=== PATIENT | male | born 1945 | race Caucasian/White ===

== ENCOUNTER 2018-05-17 08:36 | Day surgery (SDC) | payer MEDICARE, BC ==
[2018-05-17] VITALS (12 sets, daily range): BP systolic 120–140; BP diastolic 67–82
[~2018-05-17] VITALS: Ht 190.5 cm; Wt 102.3 kg
[~2018-05-17 08:36] MED LIST: IBUP-24 PO; MAGN1TAB PO; METO50TA7 PO; MOEX1TAB6 PO; MULT-1085 PO; NAPR220C15 PO; VITC500T PO; potassium PO
[2018-05-17] MEDS ORDERED: LIDOcaine 1% 30ml preserv. free vial SQ STA (08:43)
== END 2018-05-17 10:20 | disposition home or self-care (01) ==
LOC: SSTAY O 08:36
PROVIDERS: ATTEND Radiology Diagnostic Radiology
DX: J90 Pleural effusion, not elsewhere classified (principal); I25.10 Atherosclerotic heart disease of native coronary artery without angina pectoris; I10 Essential (primary) hypertension; M41.84 Other forms of scoliosis, thoracic region; I49.8 Other specified cardiac arrhythmias; Z90.49 Acquired absence of other specified parts of digestive tract; Z87.891 Personal history of nicotine dependence; Z79.1 Long term (current) use of non-steroidal anti-inflammatories (NSAID); Z79.899 Other long term (current) drug therapy; Z98.890 Other specified postprocedural states; Z82.49 Family history of ischemic heart disease and other diseases of the circulatory system; Z83.3 Family history of diabetes mellitus; Z81.8 Family history of other mental and behavioral disorders
CPT/HCPCS: 32555; 71045; 83615; 84157; J3490

== ENCOUNTER 2018-07-31 06:32 | Day surgery (SDC) | payer MEDICARE, BC ==
[2018-07-31] VITALS (13 sets, daily range): BP systolic 116–136; BP diastolic 54–89
[~2018-07-31] VITALS: Ht 185.4 cm; Wt 100.0 kg
[~2018-07-31 06:32] MED LIST changes: +LOSA1TAB15 PO; +METO-539 PO; -METO50TA7 PO; -MOEX1TAB6 PO
[2018-07-31] MEDS ORDERED: LIDOcaine 1% 30ml preserv. free vial SQ STA (09:39)
[2018-07-31 11:06] LABS: BF WBC COUNT 370 /CU MM (0-1000); BFAPPEAR HAZY; BFCOLOR YELLOW; BFVOLUME 430 ML; LYMPHOCYTES,BODY FLUID 44 %; MONOCYTES,BODY FLUID 10 %; NEUTROPHILS,BODY FLUID 46 %
[2018-07-31 11:07] LABS: BF RBC COUNT 2 /CU MM
== END 2018-07-31 10:00 | disposition home or self-care (01) ==
LOC: SSTAY O 06:32
PROVIDERS: ATTEND Internal Medicine Pulmonary Disease
DX: J90 Pleural effusion, not elsewhere classified (principal); J44.9 Chronic obstructive pulmonary disease, unspecified; G47.33 Obstructive sleep apnea (adult) (pediatric); I10 Essential (primary) hypertension; I49.8 Other specified cardiac arrhythmias; Z90.49 Acquired absence of other specified parts of digestive tract; Z87.39 Personal history of other diseases of the musculoskeletal system and connective tissue; Z87.01 Personal history of pneumonia (recurrent); Z87.891 Personal history of nicotine dependence; Z79.1 Long term (current) use of non-steroidal anti-inflammatories (NSAID); Z79.899 Other long term (current) drug therapy; Z98.890 Other specified postprocedural states; Z82.49 Family history of ischemic heart disease and other diseases of the circulatory system; Z81.8 Family history of other mental and behavioral disorders; Z83.3 Family history of diabetes mellitus
CPT/HCPCS: 32554; 71045; 84157; 87070; 89051

== ENCOUNTER 2018-10-07 05:26 | Inpatient (IN) | payer MEDICARE, BC ==
[2018-10-04 13:57] LABS: BASOPHILS # (AUTO) 0.1 X10'3 (0-0.2); BASOPHILS % (AUTO) 0.7 % (0-1); EOSINOPHILS # (AUTO) 0.3 X10'3 (0-0.9); EOSINOPHILS % (AUTO) 3.2 % (0-6); LYMPHOCYTES # (AUTO) 1.2 X10'3 (1.1-4.8); LYMPHOCYTES % (AUTO) 12.2 % (21-51); MEAN CORPUSCULAR HEMOGLOBIN 25.4 PG (27.0-31.0); MEAN CORPUSCULAR HGB CONC 33.6 g/dL (33.0-36.5); MEAN CORPUSCULAR VOLUME 75.7 FL (78-98); MEAN PLATELET VOLUME 8.3 FL (7.4-10.4); MONOCYTES % (AUTO) 9.7 % (2-12); NEUTROPHILS # (AUTO) 7.6 X10'3 (1.8-7.7); NEUTROPHILS % (AUTO) 74.2 % (42-75); PRE OP HEMATOCRIT 44.1 % (42.0-52.0); PRE OP HEMOGLOBIN 14.8 g/dL (14.0-17.9); PRE OP PLATELET COUNT 371 X10'3 (140-440); RED BLOOD COUNT 5.82 X10'6 (4.70-6.10)
[2018-10-04 14:02] LABS: CLARITY,URINE CLEAR (Clear); COLOR,URINE YELLOW (Yellow); GLUCOSE, URINE NEGATIVE (Neg); KETONES,URINE NEGATIVE (Neg); LEUKOCYTE ESTERASE ,URINE NEGATIVE (Neg); NITRITES, URINE NEGATIVE (Neg); OCCULT BLOOD,URINE NEGATIVE (Neg); PROTEIN,URINE NEGATIVE (Neg); UROBILINOGEN,URINE 0.2 E.U/dL (0.2-1.0)
[2018-10-04 14:07] LABS: UA COLLECTION TYPE CLN CATCH MIDSTREAM
[2018-10-04 14:09] LABS: HEMOGLOBIN A1C 5.8 % (4.5-6.2)
[2018-10-04 14:12] LABS: ALBUMIN 3.8 G/DL (3.4-5.0); ALBUMIN/GLOBULIN RATIO 0.8 (1.1-1.5); ALKALINE PHOSPHATASE 104 IU/L (46-116); BLOOD UREA NITROGEN 13 MG/DL (7-18); BUN/CREATININE RATIO 13.3 (5.4-32.0); CHLORIDE 97 MMOL/L (99-107); CREATININE 0.98 MG/DL (0.60-1.10); PRE OP ALT 20 U/L (30-65); PRE OP ANION GAP 8 (8-16); PRE OP AST 17 U/L (10-37); PRE OP BILIRUB, TOTAL 0.6 MG/DL (0.0-1.0); PRE OP GLUCOSE 88 MG/DL (70-104); PRE OP POTASSIUM 3.5 MMOL/L (3.4-5.1); PRE OP SODIUM 134 MMOL/L (135-145); TOTAL PROTEIN 8.6 G/DL (6.4-8.2); eGFR 75 ML/MIN
[2018-10-04 14:21] LABS: PRE OP INR 1.1 INR; PRE OP PROTIME 11.5 SECONDS (9.0-12.0)
[2018-10-07] VITALS (18 sets, daily range): BP systolic 113–154; BP diastolic 67–79
[~2018-10-07] VITALS: Ht 185.4 cm; Wt 96.4 kg
[~2018-10-07 05:26] MED LIST changes: -NAPR220C15 PO; -potassium PO; +ringers solution, lacted 1,000 ML IV SCH
[2018-10-07] MEDS ORDERED: famotidine 20mg tablet PO ONE (05:30)
[2018-10-07] MEDS ORDERED: ceFAZolin 2gm in dextrose, iso 100 ML IV ONE (05:30)
[2018-10-07] MEDS ORDERED: mupirocin 2% nasal ointment 1gm UD NS ONE (05:30)
[2018-10-07] MEDS ORDERED: LIDOcaine 1% (10mg/ml) 2ml vial ONE (05:43)
[2018-10-07] MEDS ORDERED: BUPIVAcaine/PF 2.5mg/ml (0.25%) 10ml vial ONE (06:38)
[2018-10-07] MEDS ORDERED: ondansetron/PF 4mg/2ml inj ONE (07:16)
[2018-10-07] MEDS ORDERED: MIDAZolam 5mg/5ml vial ONE (07:16)
[2018-10-07] MEDS ORDERED: fentaNYL /PF 50mcg/ml 5ml ampule ONE (07:16)
[2018-10-07] MEDS ORDERED: dexamethasone sod phosphate 10mg/ml inj ONE (07:16)
[2018-10-07] MEDS ORDERED: sevoflurane 250ml liquid IH ONE (07:16)
[2018-10-07] MEDS ORDERED: propofol inj 20 ML IV ONE (08:01)
[2018-10-07] MEDS ORDERED: [UNRECOGNIZED DRUG - OTHER] IPL ONE (08:10)
[2018-10-07] MEDS ORDERED: TALC IPL ONE (08:10)
[2018-10-07] MEDS ORDERED: sterile Talc 2 GM powder vial IPL ONE (08:30)
[2018-10-07] MEDS ORDERED: ringers solution, lacted 1,000 ML IV SCH (08:33)
[2018-10-07] MEDS ORDERED: rocuronium 10mg/ml inj IV ONE (08:34)
[2018-10-07] MEDS ORDERED: ePHEDrine 50MG/ML INJ. ONE (08:34)
[2018-10-07] MEDS ORDERED: ondansetron/PF 4mg/2ml inj IV PRN ×2 (08:35→08:45)
[2018-10-07] MEDS ORDERED: meperidine/PF 25mg/ml syringe IV PRN ×3 (08:35)
[2018-10-07] MEDS ORDERED: acetaminophen 1,000mg/100ml IV 100 ML IV PRN (08:35)
[2018-10-07] MEDS ORDERED: morphine 4 MG/ML inj SYRINge IV PRN ×4 (08:35→08:45)
[2018-10-07] MEDS ORDERED: neostigmine methylsulfate 1 MG/ML 10ml vial ONE (08:37)
[2018-10-07] MEDS ORDERED: glycopyrrolate 0.2mg/ml inj ONE (08:38)
[2018-10-07] MEDS ORDERED: metoclopramide 5 mg/ml inj IV PRN (08:45)
[2018-10-07] MEDS ORDERED: naloxone 0.4 mg/ml inj IV PRN (08:45)
[2018-10-07] MEDS ORDERED: HYDROcodone/acetaminophen 10/325mg tab PO PRN ×2 (08:45)
[2018-10-07] MEDS ORDERED: magnesium hydroxide 30ml (MOM) UD suspension PO PRN (08:45)
[2018-10-07] MEDS ORDERED: albuterol 2.5 MG/3 ML nebule NEB PRN (08:45)
--- NOTE | 2018-10-07 09:00 | NUR ---
Received from OR via BED , accompanied by Anesthesiologist DR SUAREZ and report given by Anesthesiolgist. PATIENT WAKING UP, DENIES PAIN, V/S WNL, NEUROVASCULAR CHECKS INTACT. 18G LUE, ART LINE RUE, CENTRAL LINE LEFT NECK, CHEST TUBE TO LEFT SIDE CDI WITH SMALL AIR LEAK DR GIBSON AWARE OF , NO OUTPUT IN DRAIN BUT SMALL AMOUNT IN TUBE. F/C DRAINING CLEAR YELLOW URINE. SCD ON.
--- NOTE | 2018-10-07 10:00 | NUR ---
PATIENT A&OX4, DENIES PAIN, V/S WNL, NEUROVASCULAR CHECKS INTACT. 18G LUE, ART LINE RUE D/C, CENTRAL LINE RIGHT NECK, CHEST TUBE TO LEFT SIDE CDI WITH SMALL AIR LEAK DR GIBSON AWARE OF , NO OUTPUT IN DRAIN BUT SMALL AMOUNT IN TUBE. F/C DRAINING CLEAR YELLOW URINE. SCD ON.TAKEN TO 316 WITH ALL BELONGINGS AND HOOKED UP TO MONITORS IN ROOM AND REPORT GIVEN TO LALITA RN WHO HAS TAKEN OVER PATIENT CARE.
--- NOTE | 2018-10-07 10:05 | NUR ---
Pt arrived to room from recovery. Pt oriented to room. Pt family at bedside. Pt call light in reach.
--- NOTE | 2018-10-07 10:47 | NUR ---
patient education done about how and when to use incentive spirometer. Patient verbalized understanding of use and importance.
[2018-10-07 10:49] LABS: BASOPHILS # (AUTO) 0.1 X10'3 (0-0.2); BASOPHILS % (AUTO) 0.6 % (0-1); EOSINOPHILS # (AUTO) 0.2 X10'3 (0-0.9); EOSINOPHILS % (AUTO) 2.1 % (0-6); HEMATOCRIT 36.6 % (42.0-52.0); HEMOGLOBIN 12.1 g/dl (14.0-17.9); LYMPHOCYTES # (AUTO) 1.3 X10'3 (1.1-4.8); LYMPHOCYTES % (AUTO) 14.3 % (21-51); MEAN CORPUSCULAR HEMOGLOBIN 24.9 PG (27.0-31.0); MEAN CORPUSCULAR VOLUME 75.6 FL (78-98); MEAN PLATELET VOLUME 7.8 FL (7.4-10.4); MONOCYTES # (AUTO) 0.6 X10'3 (0-0.9); MONOCYTES % (AUTO) 6.8 % (2-12); NEUTROPHILS # (AUTO) 6.9 X10'3 (1.8-7.7); NEUTROPHILS % (AUTO) 76.2 % (42-75); PLATELET COUNT 263 X10'3 (140-440); RED BLOOD COUNT 4.83 X10'6 (4.70-6.10); RED CELL DISTRIBUTION WIDTH 16.7 % (11.5-14.5)
[2018-10-07 10:57] LABS: ALBUMIN 2.9 G/DL (3.4-5.0); ANION GAP 4 (8-16); BLOOD UREA NITROGEN 15 MG/DL (7-18); BUN/CREATININE RATIO 15.5 (5.4-32.0); CHLORIDE 101 MMOL/L (99-107); CREATININE 0.97 MG/DL (0.60-1.10); GLUCOSE 107 MG/DL (70-104); POTASSIUM 3.9 MMOL/L (3.5-5.1); SODIUM 135 MMOL/L (135-145); TOTAL CARBON DIOXIDE 30.4 MMOL/L (24-32); eGFR 75 ML/MIN
--- NOTE | 2018-10-07 12:14 | NUR ---
catheter in place, urine present
[2018-10-07] MEDS: acetaminophen 325mg tablet PO PRN (14:58)
[2018-10-07] MEDS: ceFAZolin inj. 1,000 MG in dextrose 5%-water 50ml 50 ML IV SCH (16:11)
--- NOTE | 2018-10-07 17:13 | NUR ---
Student documentation: I have reviewed and agree with all interventions, assessments performed and documented by Layne RNS. Student Medication Administration: For this medication-pass time frame, all medication were reviewed, dispensed, administered and documented per hospital policy by Layne RNS.
[2018-10-07] MEDS: docusate sod 100mg capsule PO SCH (20:13)
[2018-10-08] MEDS: ceFAZolin inj. 1,000 MG in dextrose 5%-water 50ml 50 ML IV SCH (00:06)
[2018-10-08 03:00] VITALS: BP 141/74
[2018-10-08 04:47] LABS: BASOPHILS # (AUTO) 0.1 X10'3 (0-0.2); BASOPHILS % (AUTO) 0.5 % (0-1); EOSINOPHILS # (AUTO) 0.1 X10'3 (0-0.9); EOSINOPHILS % (AUTO) 1.2 % (0-6); HEMOGLOBIN 12.5 g/dl (14.0-17.9); LYMPHOCYTES # (AUTO) 1.4 X10'3 (1.1-4.8); LYMPHOCYTES % (AUTO) 11.1 % (21-51); MEAN CORPUSCULAR HEMOGLOBIN 24.7 PG (27.0-31.0); MEAN CORPUSCULAR HGB CONC 32.9 g/dL (33.0-36.5); MEAN CORPUSCULAR VOLUME 75.1 FL (78-98); MEAN PLATELET VOLUME 8.4 FL (7.4-10.4); MONOCYTES # (AUTO) 1.3 X10'3 (0-0.9); MONOCYTES % (AUTO) 10.6 % (2-12); NEUTROPHILS # (AUTO) 9.7 X10'3 (1.8-7.7); NEUTROPHILS % (AUTO) 76.6 % (42-75); PLATELET COUNT 270 X10'3 (140-440); RED BLOOD COUNT 5.06 X10'6 (4.70-6.10); RED CELL DISTRIBUTION WIDTH 16.6 % (11.5-14.5); WHITE BLOOD COUNT 12.6 X10'3 (4.5-11.0)
[2018-10-08 04:51] LABS: ALBUMIN 2.6 G/DL (3.4-5.0); ANION GAP 6 (8-16); BLOOD UREA NITROGEN 11 MG/DL (7-18); BUN/CREATININE RATIO 13.3 (5.4-32.0); CALCIUM 8.6 MG/DL (8.5-10.1); CHLORIDE 97 MMOL/L (99-107); CREATININE 0.83 MG/DL (0.60-1.10); GLUCOSE 112 MG/DL (70-104); MAGNESIUM 1.5 MG/DL (1.5-2.4); POTASSIUM 3.4 MMOL/L (3.5-5.1); SODIUM 130 MMOL/L (135-145); TOTAL CARBON DIOXIDE 26.7 MMOL/L (24-32); eGFR 90 ML/MIN
--- NOTE | 2018-10-08 06:37 | NUR ---
Patient in room MED 316. I have received report from Tess and had the opportunity to ask questions and assume patient care.
[2018-10-08 07:00] VITALS: BP 138/81
[2018-10-08] MEDS: docusate sod 100mg capsule PO SCH ×2 (07:27→20:34)
[2018-10-08] MEDS: multivitamins, therapeutics tablet PO SCH (07:27)
[2018-10-08] MEDS: enoxaparin 40mg/0.4ml syringe SUBCUT SCH (07:28)
[2018-10-08] MEDS: HYDROchlorothiazide 25mg tablet PO SCH (07:28)
[2018-10-08] MEDS: metoprolol succinate 25mg (24-HOUR) SR. Tablet PO SCH (07:28)
[2018-10-08] MEDS: ascorbic acid 500mg tablet PO SCH (07:28)
[2018-10-08] MEDS: losartan 50mg tablet PO SCH (07:28)
[2018-10-08] MEDS ORDERED: mag hydrox/Alum hydrox/simeth 30ml oral suspension PO PRN (08:00)
--- NOTE | 2018-10-08 09:40 | NUR ---
Right CVL dc'd.
[2018-10-08] MEDS ORDERED: magnesium 2GM in 50ml NS 50 ML IV PRN (09:45)
[2018-10-08] MEDS ORDERED: potassium Cl 20 mEq SR tablet PO PRN (09:45)
[2018-10-08] MEDS ORDERED: magnesium 4gm in 100ml NS 100 ML IV PRN (09:45)
[2018-10-08] MEDS ORDERED: magnesium Cl slow-release 64mg tablet PO PRN (09:45)
[2018-10-08] MEDS ORDERED: potassium Cl 40MEQ/NS 500ml 500 ML IV PRN ×2 (09:45)
[2018-10-08] MEDS: K and/or MAG REPLACEMENT MC SCH (09:50)
[2018-10-08] MEDS: potassium Cl 20 mEq SR tablet PO PRN (10:12)
--- NOTE | 2018-10-08 10:29 | NUR ---
Notified Alexey Martins of K 3.4 and mag 1.5. See orders.
[2018-10-08 11:30] VITALS: BP 123/67
[2018-10-08 15:30] VITALS: BP 123/64
--- NOTE | 2018-10-08 18:11 | NUR ---
Problems reprioritized. Patient report given, questions answered & plan of care reviewed with derrick.
--- NOTE | 2018-10-08 18:20 | NUR ---
Patient in room MED 316. I have received report from Rocío MCGINNIS and had the opportunity to ask questions and assume patient care. at bedside, pt sitting up in chair eating dinner, no c/o pain/distress at this time. will continue to monitor.
[2018-10-08 19:00] VITALS: BP 145/76
[2018-10-08] MEDS: magnesium Cl slow-release 64mg tablet PO SCH (20:33)
[2018-10-08] MEDS: acetaminophen 325mg tablet PO PRN (20:34)
[2018-10-08] MEDS: potassium Cl 20 mEq SR tablet PO SCH (20:34)
[2018-10-08 23:00] VITALS: BP 151/74
[2018-10-09 03:00] VITALS: BP 145/88
[2018-10-09 06:00] VITALS: BP 137/73
--- NOTE | 2018-10-09 06:27 | NUR ---
Problems reprioritized. Patient report given, questions answered & plan of care reviewed with Griselda MCGINNIS.
--- NOTE | 2018-10-09 06:46 | NUR ---
Patient in room MED 316. I have received report from Tess MCGINNIS and had the opportunity to ask questions and assume patient care.
[2018-10-09 06:50] LABS: BASOPHILS % (AUTO) 0.2 % (0-1); EOSINOPHILS # (AUTO) 0.5 X10'3 (0-0.9); EOSINOPHILS % (AUTO) 4.7 % (0-6); HEMATOCRIT 37.4 % (42.0-52.0); HEMOGLOBIN 12.7 g/dl (14.0-17.9); LYMPHOCYTES # (AUTO) 1.2 X10'3 (1.1-4.8); LYMPHOCYTES % (AUTO) 11.7 % (21-51); MEAN CORPUSCULAR HEMOGLOBIN 25.3 PG (27.0-31.0); MEAN CORPUSCULAR HGB CONC 33.9 g/dL (33.0-36.5); MEAN CORPUSCULAR VOLUME 74.8 FL (78-98); MEAN PLATELET VOLUME 8.3 FL (7.4-10.4); MONOCYTES # (AUTO) 1.4 X10'3 (0-0.9); MONOCYTES % (AUTO) 13.5 % (2-12); NEUTROPHILS # (AUTO) 7.4 X10'3 (1.8-7.7); NEUTROPHILS % (AUTO) 69.9 % (42-75); PLATELET COUNT 268 X10'3 (140-440); RED BLOOD COUNT 5.01 X10'6 (4.70-6.10); RED CELL DISTRIBUTION WIDTH 16.4 % (11.5-14.5); WHITE BLOOD COUNT 10.6 X10'3 (4.5-11.0)
[2018-10-09 06:56] LABS: ALBUMIN 2.6 G/DL (3.4-5.0); ANION GAP 9 (8-16); BLOOD UREA NITROGEN 10 MG/DL (7-18); BUN/CREATININE RATIO 11.9 (5.4-32.0); CALCIUM 9.1 MG/DL (8.5-10.1); CHLORIDE 96 MMOL/L (99-107); CREATININE 0.84 MG/DL (0.60-1.10); GLUCOSE 95 MG/DL (70-104); MAGNESIUM 1.7 MG/DL (1.5-2.4); POTASSIUM 3.3 MMOL/L (3.5-5.1); SODIUM 131 MMOL/L (135-145); TOTAL CARBON DIOXIDE 26.4 MMOL/L (24-32); eGFR 89 ML/MIN
[2018-10-09] MEDS: HYDROchlorothiazide 25mg tablet PO SCH (07:56)
[2018-10-09] MEDS: multivitamins, therapeutics tablet PO SCH (07:56)
[2018-10-09] MEDS: docusate sod 100mg capsule PO SCH ×2 (07:57→19:58)
[2018-10-09] MEDS: potassium Cl 20 mEq SR tablet PO SCH ×2 (07:57→19:59)
[2018-10-09] MEDS: metoprolol succinate 25mg (24-HOUR) SR. Tablet PO SCH (07:57)
[2018-10-09] MEDS: losartan 50mg tablet PO SCH (07:57)
[2018-10-09] MEDS: ascorbic acid 500mg tablet PO SCH (07:58)
[2018-10-09] MEDS: enoxaparin 40mg/0.4ml syringe SUBCUT SCH (07:58)
[2018-10-09] MEDS: magnesium Cl slow-release 64mg tablet PO SCH ×2 (07:58→19:59)
[2018-10-09] MEDS: K and/or MAG REPLACEMENT MC SCH (08:00)
[2018-10-09] MEDS: potassium Cl 20 mEq SR tablet PO PRN ×2 (09:18→14:26)
[2018-10-09 11:00] VITALS: BP 131/76
[2018-10-09] MEDS: acetaminophen 325mg tablet PO PRN (12:51)
[2018-10-09 15:00] VITALS: BP 142/67
[2018-10-09] MEDS ORDERED: diphenhydrAMINE 25mg capsule PO PRN (15:30)
[2018-10-09] MEDS ORDERED: zolpidem 5mg tablet PO PRN (15:30)
--- NOTE | 2018-10-09 17:42 | NUR ---
Problems reprioritized. Patient report given, questions answered & plan of care reviewed with Indigo MCGINNIS.
--- NOTE | 2018-10-09 17:49 | NUR ---
Patient in room MED 316. I have received report from RAHEL Villalobos and had the opportunity to ask questions and assume patient care.
--- NOTE | 2018-10-09 17:49 | NUR ---
Chest tube has had no output from previous noc shifts assessment. Patient is in bed with family at bedside. Room air. Reports no SOB. Is requesting a Tylenol after dinner and a Benadryl at bedtime. Will communicate this with NOC RN
[2018-10-09 18:00] VITALS: BP 137/42
--- NOTE | 2018-10-09 18:15 | NUR ---
Patient in room MED 316. I have received report from [place] and had the opportunity to ask questions and assume patient care.
[2018-10-09 23:00] VITALS: BP 132/72
[2018-10-10 03:00] VITALS: BP 136/79
[2018-10-10 06:00] VITALS: BP 151/80
[2018-10-10 06:35] LABS: BASOPHILS % (AUTO) 0.4 % (0-1); EOSINOPHILS # (AUTO) 0.8 X10'3 (0-0.9); EOSINOPHILS % (AUTO) 8.5 % (0-6); HEMATOCRIT 37.7 % (42.0-52.0); HEMOGLOBIN 12.7 g/dl (14.0-17.9); LYMPHOCYTES # (AUTO) 1.2 X10'3 (1.1-4.8); LYMPHOCYTES % (AUTO) 12.7 % (21-51); MEAN CORPUSCULAR HEMOGLOBIN 25.4 PG (27.0-31.0); MEAN CORPUSCULAR HGB CONC 33.7 g/dL (33.0-36.5); MEAN CORPUSCULAR VOLUME 75.4 FL (78-98); MEAN PLATELET VOLUME 8.3 FL (7.4-10.4); MONOCYTES # (AUTO) 0.9 X10'3 (0-0.9); MONOCYTES % (AUTO) 9.4 % (2-12); NEUTROPHILS # (AUTO) 6.7 X10'3 (1.8-7.7); PLATELET COUNT 293 X10'3 (140-440); RED BLOOD COUNT 4.99 X10'6 (4.70-6.10); RED CELL DISTRIBUTION WIDTH 16.4 % (11.5-14.5); WHITE BLOOD COUNT 9.6 X10'3 (4.5-11.0)
[2018-10-10 06:45] LABS: ALBUMIN 2.5 G/DL (3.4-5.0); ANION GAP 9 (8-16); BLOOD UREA NITROGEN 12 MG/DL (7-18); BUN/CREATININE RATIO 14.1 (5.4-32.0); CALCIUM 9.3 MG/DL (8.5-10.1); CHLORIDE 97 MMOL/L (99-107); CREATININE 0.85 MG/DL (0.60-1.10); GLUCOSE 86 MG/DL (70-104); MAGNESIUM 1.8 MG/DL (1.5-2.4); POTASSIUM 3.8 MMOL/L (3.5-5.1); SODIUM 132 MMOL/L (135-145); TOTAL CARBON DIOXIDE 26.3 MMOL/L (24-32); eGFR 88 ML/MIN
[2018-10-10] MEDS: enoxaparin 40mg/0.4ml syringe SUBCUT SCH (08:00)
[2018-10-10] MEDS: K and/or MAG REPLACEMENT MC SCH (08:00)
[2018-10-10] MEDS: losartan 50mg tablet PO SCH (09:37)
[2018-10-10] MEDS: docusate sod 100mg capsule PO SCH (09:37)
[2018-10-10] MEDS: HYDROchlorothiazide 25mg tablet PO SCH (09:37)
[2018-10-10] MEDS: potassium Cl 20 mEq SR tablet PO SCH (09:38)
[2018-10-10] MEDS: ascorbic acid 500mg tablet PO SCH (09:38)
[2018-10-10] MEDS: magnesium Cl slow-release 64mg tablet PO SCH (09:38)
[2018-10-10] MEDS: multivitamins, therapeutics tablet PO SCH (09:38)
[2018-10-10] MEDS: metoprolol succinate 25mg (24-HOUR) SR. Tablet PO SCH (09:38)
[2018-10-10 11:00] VITALS: BP 137/76
--- NOTE | 2018-10-10 11:50 | NUR ---
discharge education provided to pt and spouse; all questions answered. pt removed from cardiac monitoring, IV removed; cannula intact. pt wheeled with all belongings downstairs to private vehicle.
== END 2018-10-10 11:50 | disposition home health service (06) | DRG 164 ==
LOC: PAS IN 05:26 → EDSTATUS 07:30 → MED 3N 10:23
PROVIDERS: ADMIT Thoracic Surgery (Cardiothoracic Vascular Surgery); ATTEND Thoracic Surgery (Cardiothoracic Vascular Surgery)
PROC: 0B5P4ZZ Destruction of Left Pleura, Percutaneous Endoscopic Approach (ICD-10-PCS; 2018-10-07)
PROC: 0BJ08ZZ Inspection of Tracheobronchial Tree, Via Natural or Artificial Opening Endoscopic (ICD-10-PCS; 2018-10-07)
PROC: 3E0L4GC Introduction of Other Therapeutic Substance into Pleural Cavity, Percutaneous Endoscopic Approach (ICD-10-PCS; 2018-10-07)
PROC: 0W9B40Z Drainage of Left Pleural Cavity with Drainage Device, Percutaneous Endoscopic Approach (ICD-10-PCS; 2018-10-07)
PROC: 0BBP4ZX Excision of Left Pleura, Percutaneous Endoscopic Approach, Diagnostic (ICD-10-PCS; principal; 2018-10-07 07:16)
DX: J90 Pleural effusion, not elsewhere classified (principal); E44.0 Moderate protein-calorie malnutrition; E87.1 Hypo-osmolality and hyponatremia; M06.9 Rheumatoid arthritis, unspecified; G47.30 Sleep apnea, unspecified; J60 Coalworker's pneumoconiosis; R68.81 Early satiety; R63.4 Abnormal weight loss; I10 Essential (primary) hypertension; Z98.1 Arthrodesis status; Z90.49 Acquired absence of other specified parts of digestive tract; Z79.899 Other long term (current) drug therapy; Z87.891 Personal history of nicotine dependence; Z82.49 Family history of ischemic heart disease and other diseases of the circulatory system; Z68.28 Body mass index [BMI] 28.0-28.9, adult
CPT/HCPCS: 36415; 71045; 71046; 71250; 80048; 80053; 81003; 82948; 83036; 83735; 85025; 85610; 85730; 86885; 86900; 86901; 87070; 87075; 87102; 88108; 88305; 93005; 97110; 97116; 97161; A6449; A7000; A7048; C1758; G0378; J0690; J1100; J1650; J2250; J2405; J2704; J2710; J3010; J3490; J7060; J7120; Q0163

== ENCOUNTER 2018-10-17 12:07 | Outpatient (CLI) | payer MEDICARE, BC ==
[~2018-10-17 12:07] MED LIST changes: -ringers solution, lacted 1,000 ML IV SCH
== END 2018-10-17 23:59 | disposition home or self-care (01) ==
LOC: RAD 12:07
PROVIDERS: ATTEND Thoracic Surgery (Cardiothoracic Vascular Surgery)
DX: J90 Pleural effusion, not elsewhere classified (principal); I10 Essential (primary) hypertension
CPT/HCPCS: 71046

== ENCOUNTER 2019-04-22 16:50 | Observation (INO) | payer BC, MEDICARE, OTHER ==
[~2019-04-22] VITALS: Ht 185.4 cm; Wt 96.0 kg
[2019-04-22 17:21] LABS: BASOPHILS % (AUTO) 0.6 % (0-1); EOSINOPHILS # (AUTO) 0.2 X10'3 (0-0.9); EOSINOPHILS % (AUTO) 2.9 % (0-6); HEMATOCRIT 38.1 % (42.0-52.0); HEMOGLOBIN 12.8 g/dl (14.0-17.9); LYMPHOCYTES % (AUTO) 24.9 % (21-51); MEAN CORPUSCULAR HEMOGLOBIN 26.1 PG (27.0-31.0); MEAN CORPUSCULAR HGB CONC 33.6 g/dL (33.0-36.5); MEAN CORPUSCULAR VOLUME 77.7 FL (78-98); MEAN PLATELET VOLUME 8.3 FL (7.4-10.4); MONOCYTES # (AUTO) 0.8 X10'3 (0-0.9); MONOCYTES % (AUTO) 9.7 % (2-12); NEUTROPHILS % (AUTO) 61.9 % (42-75); PLATELET COUNT 327 X10'3 (140-440); RED CELL DISTRIBUTION WIDTH 15.8 % (11.5-14.5); WHITE BLOOD COUNT 8.2 X10'3 (4.5-11.0)
[2019-04-22 17:30] LABS: PARTIAL THROMBOPLASTIN TIME 28 SECONDS (22-32)
[2019-04-22 17:33] LABS: ALANINE AMINOTRANSFERASE 15 U/L (12-78); ALBUMIN 3.2 G/DL (3.4-5.0); ALBUMIN/GLOBULIN RATIO 0.7 (1.1-1.5); ALKALINE PHOSPHATASE 94 IU/L (46-116); ANION GAP 8 (8-16); ASPARTATE AMINO TRANSFERASE 18 U/L (10-37); BILIRUBIN,TOTAL 0.3 MG/DL (0.1-1.0); BLOOD UREA NITROGEN 13 MG/DL (7-18); BUN/CREATININE RATIO 12.9 (5.4-32.0); CALCIUM 9.4 MG/DL (8.5-10.1); CHLORIDE 99 MMOL/L (99-107); CREATININE 1.01 MG/DL (0.60-1.10); GLUCOSE 88 MG/DL (70-104); POTASSIUM 3.8 MMOL/L (3.5-5.1); SODIUM 135 MMOL/L (135-145); TOTAL CARBON DIOXIDE 27.9 MMOL/L (24-32); eGFR 72 ML/MIN
[2019-04-22] MEDS ORDERED: iohexol 350MG/ML 100ml bottle IV ONE (17:54)
[2019-04-22] MEDS ORDERED: magnesium Cl slow-release 64mg tablet PO PRN (19:35)
[2019-04-22] MEDS ORDERED: ondansetron/PF 4mg/2ml inj IV PRN (19:35)
[2019-04-22] MEDS ORDERED: nitroGLYCERIN 0.4mg SUBLingual tab SL PRN ×2 (19:35→23:05)
[2019-04-22] MEDS ORDERED: morphine 2 MG/ML inj. syringe IV PRN ×2 (19:35)
[2019-04-22] MEDS ORDERED: magnesium hydroxide 30ml (MOM) UD suspension PO PRN (19:35)
[2019-04-22] MEDS ORDERED: HYDROcodone/acetaminophen 5mg/325mg tablet PO PRN (19:35)
[2019-04-22] MEDS ORDERED: magnesium 4gm in 100ml NS 100 ML IV PRN (19:35)
[2019-04-22] MEDS ORDERED: potassium CL 10mEq/100ml bag 100 ML IV PRN ×2 (19:35)
[2019-04-22] MEDS ORDERED: mag hydrox/Alum hydrox/simeth 30ml oral suspension PO PRN (19:35)
[2019-04-22] MEDS ORDERED: potassium Cl 20 mEq SR tablet PO PRN (19:35)
[2019-04-22] MEDS ORDERED: magnesium 2GM in 50ml NS 50 ML IV PRN (19:35)
[2019-04-22] MEDS ORDERED: acetaminophen 325mg tablet PO PRN ×2 (19:35)
[2019-04-22 20:10] LABS: HEMOGLOBIN A1C 5.5 % (4.5-6.2)
--- NOTE | 2019-04-22 20:36 | NUR ---
BREAKING PRIMARY RN, GAVE PT SANDWICH, MILK AND YOGURT, CYCLED BP, UPDATED VITALS, HE IS ON THE PHONE, WOFE PRESENT, STABLE
--- NOTE | 2019-04-22 20:42 | NUR ---
CALLED TO GIVE REPORT WAS TOLD THAT RAHEL FERRO IS IN THE MIDDLE OF MED PASS AND WILL CALL BACK IN A FEW MINS
[2019-04-22 22:00] VITALS: BP 126/67
[2019-04-22] MEDS ORDERED: aminophylline 250mg/10ml inj. IV PRN (23:05)
[2019-04-22] MEDS ORDERED: metoprolol tartrate 1mg/ml inj IV PRN (23:05)
[2019-04-22] MEDS ORDERED: regadenoson 0.4mg/5ml syringe IV PRN (23:05)
[2019-04-23] VITALS (16 sets, daily range): BP systolic 117–154; BP diastolic 66–91
[2019-04-23 05:50] LABS: BASOPHILS # (AUTO) 0.1 X10'3 (0-0.2); BASOPHILS % (AUTO) 0.7 % (0-1); EOSINOPHILS # (AUTO) 0.3 X10'3 (0-0.9); EOSINOPHILS % (AUTO) 3.5 % (0-6); HEMATOCRIT 37.1 % (42.0-52.0); HEMOGLOBIN 12.5 g/dl (14.0-17.9); LYMPHOCYTES # (AUTO) 1.8 X10'3 (1.1-4.8); LYMPHOCYTES % (AUTO) 24.1 % (21-51); MEAN CORPUSCULAR HEMOGLOBIN 25.8 PG (27.0-31.0); MEAN CORPUSCULAR HGB CONC 33.5 g/dL (33.0-36.5); MEAN CORPUSCULAR VOLUME 76.9 FL (78-98); MEAN PLATELET VOLUME 8.7 FL (7.4-10.4); MONOCYTES # (AUTO) 0.7 X10'3 (0-0.9); MONOCYTES % (AUTO) 9.7 % (2-12); NEUTROPHILS # (AUTO) 4.7 X10'3 (1.8-7.7); PLATELET COUNT 295 X10'3 (140-440); RED BLOOD COUNT 4.83 X10'6 (4.70-6.10); RED CELL DISTRIBUTION WIDTH 15.7 % (11.5-14.5); WHITE BLOOD COUNT 7.5 X10'3 (4.5-11.0)
[2019-04-23 06:05] LABS: ANION GAP 9 (8-16); BLOOD UREA NITROGEN 15 MG/DL (7-18); BUN/CREATININE RATIO 14.2 (5.4-32.0); CALCIUM 9.1 MG/DL (8.5-10.1); CHLORIDE 101 MMOL/L (99-107); CREATININE 1.06 MG/DL (0.60-1.10); GLUCOSE 79 MG/DL (70-104); POTASSIUM 3.4 MMOL/L (3.5-5.1); SODIUM 140 MMOL/L (135-145); TOTAL CARBON DIOXIDE 30.5 MMOL/L (24-32); eGFR 68 ML/MIN
--- NOTE | 2019-04-23 06:20 | NUR ---
Gave report to Andre. Answered all the questions.
[2019-04-23] MEDS ORDERED: enoxaparin 40mg/0.4ml syringe SQ SCH (08:00)
[2019-04-23] MEDS: K and/or MAG REPLACEMENT MC SCH (08:00)
[2019-04-23] MEDS ORDERED: losartan 50mg tablet PO SCH (08:00)
[2019-04-23] MEDS ORDERED: aspirin 325mg tablet, delayed-release (Ecotrin) PO SCH (08:00)
[2019-04-23] MEDS ORDERED: HYDROchlorothiazide 25mg tablet PO SCH (08:00)
[2019-04-23] MEDS: potassium Cl 20 mEq SR tablet PO PRN ×2 (09:25→14:40)
--- NOTE | 2019-04-23 17:51 | NUR ---
Discharge instructions reviewed with pt. Pt verbalized understanding. IV removed. Pt discharged to home with .
== END 2019-04-23 17:45 | disposition home or self-care (01) ==
LOC: ER 16:50 → MED 3N 19:53 → UNDOADMOB 20:07 → ED HOLD 20:07 → INTOOBSV 20:07 → EDBEDREQ 20:30 → MED 3N 21:42 → ED HOLD 21:42 → CMPBEDREQ 21:55
PROVIDERS: ADMIT Hospitalist; ATTEND Family Medicine
DX: R07.89 Other chest pain (principal); N40.0 Benign prostatic hyperplasia without lower urinary tract symptoms; M54.9 Dorsalgia, unspecified; G89.29 Other chronic pain; E11.9 Type 2 diabetes mellitus without complications; I77.819 Aortic ectasia, unspecified site; J43.9 Emphysema, unspecified; I10 Essential (primary) hypertension; I25.10 Atherosclerotic heart disease of native coronary artery without angina pectoris; Z82.49 Family history of ischemic heart disease and other diseases of the circulatory system; Z83.3 Family history of diabetes mellitus
CPT/HCPCS: 36415; 71045; 71275; 74175; 78452; 80048; 80053; 83036; 83735; 84484; 85025; 85610; 85730; 87081; 93005; 93017; 93306; 96372; 99284; A9500; G0378; J0280; J2785; Q9967; 99285; J1650

== ENCOUNTER 2020-01-01 08:37 | Day surgery (SDC) | payer MEDICARE, BC ==
[2020-01-01 09:06] VITALS: BP 137/88
[2020-01-01] MEDS ORDERED: AMLO5TAB PO (09:36)
== END 2020-01-01 10:30 | disposition home or self-care (01) ==
LOC: SSTAY O 08:37
PROVIDERS: ATTEND Radiology Vascular & Interventional Radiology
DX: J90 Pleural effusion, not elsewhere classified (principal); I10 Essential (primary) hypertension; N40.0 Benign prostatic hyperplasia without lower urinary tract symptoms; G89.29 Other chronic pain; Z98.890 Other specified postprocedural states; Z79.899 Other long term (current) drug therapy; Z82.49 Family history of ischemic heart disease and other diseases of the circulatory system; Z83.3 Family history of diabetes mellitus
CPT/HCPCS: 76604

== ENCOUNTER 2020-02-17 15:31 | Emergency (ER) | payer MEDICARE, BC ==
[~2020-02-17] VITALS: Ht 185.4 cm; Wt 90.0 kg
[~2020-02-17 15:31] MED LIST changes: +AMLO5TAB PO; -METO-539 PO
[2020-02-17 16:08] LABS: BASOPHILS % (AUTO) 0.5 % (0-1); EOSINOPHILS # (AUTO) 0.1 X10'3 (0-0.9); EOSINOPHILS % (AUTO) 1.4 % (0-6); HEMATOCRIT 36.3 % (42.0-52.0); LYMPHOCYTES # (AUTO) 1.4 X10'3 (1.1-4.8); LYMPHOCYTES % (AUTO) 14.8 % (21-51); MEAN CORPUSCULAR HEMOGLOBIN 24.2 PG (27.0-31.0); MEAN CORPUSCULAR HGB CONC 32.9 g/dL (33.0-36.5); MEAN CORPUSCULAR VOLUME 73.7 FL (78-98); MEAN PLATELET VOLUME 7.6 FL (7.4-10.4); MONOCYTES % (AUTO) 10.4 % (2-12); NEUTROPHILS # (AUTO) 6.7 X10'3 (1.8-7.7); NEUTROPHILS % (AUTO) 72.9 % (42-75); PLATELET COUNT 459 X10'3 (140-440); RED BLOOD COUNT 4.93 X10'6 (4.70-6.10); RED CELL DISTRIBUTION WIDTH 16.3 % (11.5-14.5); WHITE BLOOD COUNT 9.2 X10'3 (4.5-11.0)
[2020-02-17 16:22] LABS: ALANINE AMINOTRANSFERASE 20 U/L (12-78); ALBUMIN/GLOBULIN RATIO 0.6 (1.1-1.5); ALKALINE PHOSPHATASE 85 IU/L (46-116); ANION GAP 9 (8-16); ASPARTATE AMINO TRANSFERASE 21 U/L (10-37); BILIRUBIN,TOTAL 0.5 MG/DL (0.1-1.0); BLOOD UREA NITROGEN 9 MG/DL (7-18); BUN/CREATININE RATIO 9.9 (5.4-32.0); CALCIUM 9.6 MG/DL (8.5-10.1); CHLORIDE 97 MMOL/L (99-107); CREATININE 0.91 MG/DL (0.60-1.10); GLUCOSE 94 MG/DL (70-104); LIPASE 215 U/L (73-393); POTASSIUM 3.3 MMOL/L (3.5-5.1); SODIUM 134 MMOL/L (135-145); TOTAL CARBON DIOXIDE 28.4 MMOL/L (24-32); TOTAL PROTEIN 8.3 G/DL (6.4-8.2); eGFR 81 ML/MIN
[2020-02-17 16:41] LABS: CLARITY,URINE CLEAR (Clear); COLOR,URINE STRAW (Yellow); GLUCOSE, URINE NEGATIVE (Neg); KETONES,URINE NEGATIVE (Neg); LEUKOCYTE ESTERASE ,URINE NEGATIVE (Neg); NITRITES, URINE NEGATIVE (Neg); OCCULT BLOOD,URINE TRACE-LYSED (Neg); PROTEIN,URINE NEGATIVE (Neg); UROBILINOGEN,URINE 0.2 E.U/dL (0.2-1.0)
[2020-02-17 16:43] LABS: UA COLLECTION TYPE CLN CATCH MIDSTREAM
[2020-02-17 16:51] LABS: MUCUS STRANDS FEW /LPF (Neg); SQUAMOUS EPITHELIAL CELL,UR FEW /LPF (FEW)
[2020-02-17 16:52] LABS: BACTERIA,URINE FEW /HPF (Neg); WBC,URINE 0-4 /HPF (0-4)
[2020-02-17 17:09] VITALS: BP 167/99
--- NOTE | 2020-02-17 17:53 | NUR ---
Pt talking on his phone without any distress.
[2020-02-17] MEDS ORDERED: ACET-3067 PO (18:43)
[2020-02-17] MEDS ORDERED: acetaminophen w/codeine (30MG) #3 tablet PO ONE (18:45)
== END 2020-02-17 18:58 | disposition home or self-care (01) ==
LOC: ER 15:31
DX: J90 Pleural effusion, not elsewhere classified (principal); R16.1 Splenomegaly, not elsewhere classified; R59.1 Generalized enlarged lymph nodes; R10.12 Left upper quadrant pain; R11.0 Nausea; I10 Essential (primary) hypertension; G89.29 Other chronic pain; Z79.899 Other long term (current) drug therapy
CPT/HCPCS: 36415; 71250; 74176; 80053; 81001; 83690; 85025; 99284

== ENCOUNTER 2020-04-19 08:29 | Day surgery (SDC) | payer MEDICARE, BC ==
[2020-04-19] VITALS (16 sets, daily range): BP systolic 139–156; BP diastolic 77–93
[~2020-04-19] VITALS: Ht 185.4 cm; Wt 89.6 kg
[2020-04-19] MEDS ORDERED: normal saline 1000ml 1,000 ML IV SCH (09:00)
[2020-04-19] MEDS ORDERED: ZINC50TA60 (09:18)
[2020-04-19] MEDS ORDERED: METO-539 PO (09:18)
[2020-04-19] MEDS ORDERED: FOLI0.4T14 PO (09:18)
[2020-04-19] MEDS ORDERED: potassium PO (09:18)
[2020-04-19] MEDS ORDERED: CALC-1215 PO (09:18)
[2020-04-19] MEDS ORDERED: vitamin b12 PO (09:18)
[2020-04-19] MEDS ORDERED: LUTE1CAP4 PO (09:18)
[2020-04-19] MEDS ORDERED: GARL1000 (09:18)
[2020-04-19] MEDS ORDERED: UBID100C16 PO (09:18)
[2020-04-19] MEDS ORDERED: MAGN250T11 PO (09:18)
[2020-04-19 09:25] LABS: BASOPHILS # (AUTO) 0.1 X10'3 (0-0.2); HEMATOCRIT 36.3 % (42.0-52.0); LYMPHOCYTES # (AUTO) 1.1 X10'3 (1.1-4.8); MEAN CORPUSCULAR VOLUME 72.6 FL (78-98); MONOCYTES # (AUTO) 0.9 X10'3 (0-0.9); WHITE BLOOD COUNT 8.4 X10'3 (4.5-11.0)
[2020-04-19 09:27] LABS: BASOPHILS % (AUTO) 0.9 % (0-1); EOSINOPHILS # (AUTO) 0.2 X10'3 (0-0.9); EOSINOPHILS % (AUTO) 2.8 % (0-6); HEMOGLOBIN 11.8 g/dl (14.0-17.9); LYMPHOCYTES % (AUTO) 13.3 % (21-51); MEAN CORPUSCULAR HEMOGLOBIN 23.5 PG (27.0-31.0); MEAN CORPUSCULAR HGB CONC 32.4 g/dL (33.0-36.5); MEAN PLATELET VOLUME 7.7 FL (7.4-10.4); MONOCYTES % (AUTO) 10.9 % (2-12); NEUTROPHILS % (AUTO) 72.1 % (42-75); PLATELET COUNT 423 X10'3 (140-440); RED CELL DISTRIBUTION WIDTH 16.5 % (11.5-14.5)
[2020-04-19] MEDS ORDERED: fentaNYL/PF 50MCG/1 ML 2ML syringe ONE (11:32)
[2020-04-19] MEDS ORDERED: midazolam 2 mg/2 ml injection ONE (11:32)
[2020-04-19] MEDS ORDERED: gelatin sponge, absorbable (Gelfoam 12-7MM) sponge TP ONE (11:54)
[2020-04-19] MEDS ORDERED: HYDROcodone/acetaminophen 5mg/325mg tablet PO PRN (12:35)
[2020-04-19] MEDS ORDERED: morphine 4 MG/ML inj SYRINge IV PRN (12:35)
--- NOTE | 2020-04-19 14:53 | NUR ---
Both chest x-rays resulted, Dr. Franco telephoned to read films. No pneumothorax present per antonio MURRAY for pt to discharge at 1530.
== END 2020-04-19 15:30 | disposition home or self-care (01) ==
LOC: SSTAY O 08:29
PROVIDERS: ATTEND Radiology Vascular & Interventional Radiology
DX: R91.8 Other nonspecific abnormal finding of lung field (principal); J94.8 Other specified pleural conditions; R07.9 Chest pain, unspecified; I10 Essential (primary) hypertension; G47.30 Sleep apnea, unspecified; Z77.090 Contact with and (suspected) exposure to asbestos; M06.9 Rheumatoid arthritis, unspecified; Z98.890 Other specified postprocedural states; Z79.899 Other long term (current) drug therapy; Z87.891 Personal history of nicotine dependence; Z88.8 Allergy status to other drugs, medicaments and biological substances; Z20.828 Contact with and (suspected) exposure to other viral communicable diseases; Z82.49 Family history of ischemic heart disease and other diseases of the circulatory system; Z80.3 Family history of malignant neoplasm of breast
CPT/HCPCS: 32405; 36415; 71045; 77012; 85025; 87635; 99152; 99153; J2250; J3010